=== PATIENT | male | born 1965 | race Caucasian/White ===

== ENCOUNTER 2018-10-02 08:16 | Day surgery (SDC) | payer OTHER ==
[2018-10-02] MEDS ORDERED: PROPOFOL 20 ML (09:34)
[2018-10-02] MEDS ORDERED: FENTAnyl 50 MCG/ML VIAL (09:34)
== END 2018-10-08 11:30 | disposition home or self-care (01) ==
LOC: GIL 08:16
DX: K29.50 Unspecified chronic gastritis without bleeding (principal); K20.8 Other esophagitis; E78.00 Pure hypercholesterolemia, unspecified
CPT/HCPCS: 43239; 88305; 88312; 88313

== ENCOUNTER 2019-01-03 08:54 | Day surgery (SDC) | payer OTHER ==
[2019-01-03] MEDS ORDERED: PROPOFOL 20 ML (10:22)
[2019-01-03] MEDS ORDERED: METOCLOPRAMIDE 10 MG INJ IV (10:30)
[2019-01-03] MEDS ORDERED: LABETALOL HCL 20MG INJ IV (10:30)
[2019-01-03] MEDS ORDERED: hydrALAzine 20 MG INJ IV (10:30)
[2019-01-03] MEDS ORDERED: FENTAnyl 50 MCG/ML VIAL IV ×3 (10:30)
[2019-01-03] MEDS ORDERED: OXYCODONE/ACETAMINOPHEN (5/325) TAB PO ×2 (10:30)
[2019-01-03] MEDS ORDERED: DIPHENHYDRAMINE 50 MG INJ IV (10:30)
[2019-01-03] MEDS ORDERED: MEPERIDINE 25 MG INJ IV (10:30)
[2019-01-03] MEDS ORDERED: ONDANSETRON 4 MG INJ IV (10:30)
[2019-01-03] MEDS ORDERED: MIDAZOLAM 1 MG/ML 2 ML INJ IV (10:30)
[2019-01-03] MEDS ORDERED: EPHEDrine SULFATE 50 MG/5 ML SYG IV (10:30)
== END 2019-01-03 13:43 | disposition home or self-care (01) ==
LOC: GIL 08:54
DX: Z12.11 Encounter for screening for malignant neoplasm of colon (principal); D12.6 Benign neoplasm of colon, unspecified; K64.8 Other hemorrhoids; E11.9 Type 2 diabetes mellitus without complications; E78.5 Hyperlipidemia, unspecified
CPT/HCPCS: 45380; 82962; 88305